=== PATIENT | female | born 1965 | race Two or more races ===

== ENCOUNTER 2023-12-30 11:18 | Outpatient (CLI) | payer OTHER | END 2023-12-30 11:30 | disposition home or self-care (01) | LOC: MAMO-SONO 11:18 | PROVIDERS: ATTEND Obstetrics & Gynecology | DX: N60.11 Diffuse cystic mastopathy of right breast (principal); N60.12 Diffuse cystic mastopathy of left breast; R10.2 Pelvic and perineal pain; N95.0 Postmenopausal bleeding ==

== ENCOUNTER 2025-05-01 10:51 | Outpatient (CLI) | payer OTHER | END 2025-05-01 10:55 | disposition home or self-care (01) | LOC: MAMO-SONO 10:51 | PROVIDERS: ATTEND Obstetrics & Gynecology | DX: N60.11 Diffuse cystic mastopathy of right breast (principal); N60.12 Diffuse cystic mastopathy of left breast; M54.50 Low back pain, unspecified ==

== ENCOUNTER → 2025-05-03 11:11 | Outpatient (CLI) | payer OTHER | END | disposition home or self-care (01) | LOC: NUCLEAR 11:00 | PROVIDERS: ATTEND Obstetrics & Gynecology | DX: M81.0 Age-related osteoporosis without current pathological fracture (principal) ==